=== PATIENT | male | born 1945 | race Caucasian/White ===

== ENCOUNTER 2022-11-07 09:21 | Inpatient (IN) | payer OTHER ==
[~2022-11-07] VITALS: Ht 185.4 cm; Wt 78.9 kg
[2022-11-07 09:35] VITALS: BP_SYST 105
--- NOTE | 2022-11-07 09:42 | NUR ---
RECEIVED PT FROM RAY DELGADO. PT CLAYTON ACLS FOR C/O DIZZINESS AND SYNCOPE. PT IS AAOX4. ON R/A. PT SKIN WARM, DRY, INTACT, PALE. PT DENIES N/V/D/C. DISTAL PULSES NORMAL. DENIES PAIN. SIDERAILS UP X2.
--- NOTE | 2022-11-07 09:45 | NUR ---
BLOOD DRAWN AND TAKEN TO LAB.
--- NOTE | 2022-11-07 09:47 | NUR ---
ER at bedside examining patient.
[2022-11-07 10:07] LABS: BASOPHILS # (AUTO) 0.1 K/uL (0.0-0.2); BASOPHILS % (AUTO) 0.7 % (0.0-2.0); EOSINOPHILS # (AUTO) 0.1 K/uL (0.0-0.4); EOSINOPHILS % (AUTO) 0.9 % (0.0-4.0); HEMATOCRIT 26.5 % (36-54); HEMOGLOBIN 8.8 g/dL (14.0-18.0); LYMPHOCYTES # (AUTO) 2.4 K/uL (1.0-5.5); LYMPHOCYTES % (AUTO) 16.2 % (20.5-51.5); MEAN CORPUSCULAR HEMOGLOBIN 31 pg (27-31); MEAN CORPUSCULAR HGB CONC 33 % (32-36); MEAN CORPUSCULAR VOLUME 94 fL (79.0-98.0); MONOCYTES # (AUTO) 1.1 K/uL (0.0-1.0); MONOCYTES % (AUTO) 7.6 % (1.7-9.3); NEUTROPHILS % (AUTO) 74.6 % (40.0-70.0); PLATELET COUNT (AUTO) 271 K/uL (130-430); RED BLOOD CELL COUNT(AUTO) 2.83 MIL/uL (4.2-6.2); RED CELL DISTRIBUTION WIDTH 15.5 % (9.0-15.0); WHITE BLOOD COUNT (AUTO) 14.7 K/uL (4.8-10.8)
--- NOTE | 2022-11-07 10:08 | NUR ---
ekg, cxr and labs obtained. at bedside.
--- NOTE | 2022-11-07 10:13 | NUR ---
b/p 85/34, [place] made aware. ns 1000ml bolus will be given.
[2022-11-07] MEDS ORDERED: NACL 0.9% 1,000 ML IV ONE (10:15)
[2022-11-07 10:20] LABS: ANION GAP 21 (5-15); CALCIUM 9.7 mg/dL (8.4-11.0); CHLORIDE 101 mmol/L (98-107); GLUCOSE 272 mg/dL (70-99); UREA NITROGEN, BLOOD 85 mg/dL (8-21)
[2022-11-07 10:22] LABS: INR 1.2 (0.80-1.20); PROTHROMBIN TIME 12.5 SECS (9.5-12.5)
[2022-11-07 10:32] LABS: ALANINE AMINOTRANSFERASE 11 U/L (12-78); ALBUMIN 3.5 g/dL (3.4-4.8); ASPARTATE AMINOTRANSFERASE 8 U/L (10-37); TOTAL BILIRUBIN 0.3 mg/dL (0.0-1.0)
[2022-11-07] MEDS ORDERED: PANTOPRAZOLE SODIUM 40 MG/VIAL (PROTONIX) IVP ONE (12:00)
[2022-11-07] MEDS ORDERED: D5/0.45 NS 1,000 ML IV SCH ×2 (12:15→19:45)
[2022-11-07] MEDS ORDERED: METF1000 PO (12:26)
[2022-11-07] MEDS ORDERED: HYDR25TA4 PO (12:26)
[2022-11-07] MEDS ORDERED: APIX5TAB PO (12:26)
[2022-11-07] MEDS ORDERED: INSU100V9 (12:26)
[2022-11-07] MEDS ORDERED: METO50TA16 PO (12:26)
[2022-11-07] MEDS ORDERED: ATOR-1 PO (12:26)
--- NOTE | 2022-11-07 12:39 | NUR ---
Admit bed requested Patient will be admitted to care of . Admitted to TELEMETRY unit. Diagnosis LOWER GI BLEED. Inpatient (Yes or No) YES Observation (Yes or No) YES Orientation concerns or request close to nursing station (Yes or No) NO Covid Status NEGATIVE On vent or bipap NO Isolation requirements NONE Needs a sitter NO From Home (Yes or if No enter name of facility) YES Requires Dialysis (Yes or No) NO Med Rec Completed (Yes of No) YES
[2022-11-07] MEDS ORDERED: SIMETHICONE 40 MG/0.6 ML ML ONE (13:35)
[2022-11-07] MEDS ORDERED: fentaNYL CITRATE/PF 100 MCG/2 ML AMP ONE (13:35)
[2022-11-07] MEDS ORDERED: MIDAZOLAM HCL 5 MG/5 ML VIAL ONE (13:37)
--- NOTE | 2022-11-07 14:01 | NUR ---
PT TRANSFERRED TO GI LAB FOR EGD. REPORT GIVEN TO RAY PINEDA.
--- NOTE | 2022-11-07 14:02 | NUR ---
Patient will be admitted to care of RAY PINEDA WITH GI LAB. Admitted to TELEMETRY unit. Will go to room UNKNOWN AT THIS TIME. Belongings list completed. Complete and up to date summary report printed. SBAR report to be given at bedside with opportunity for questions.
[2022-11-07 14:21] LABS: BASOPHILS # (AUTO) 0.1 K/uL (0.0-0.2); BASOPHILS % (AUTO) 0.5 % (0.0-2.0); EOSINOPHILS % (AUTO) 0.1 % (0.0-4.0); LYMPHOCYTES # (AUTO) 1.5 K/uL (1.0-5.5); LYMPHOCYTES % (AUTO) 13.7 % (20.5-51.5); MEAN CORPUSCULAR HEMOGLOBIN 32 pg (27-31); MEAN CORPUSCULAR HGB CONC 34 % (32-36); MEAN CORPUSCULAR VOLUME 93 fL (79.0-98.0); MONOCYTES # (AUTO) 0.6 K/uL (0.0-1.0); MONOCYTES % (AUTO) 5.5 % (1.7-9.3); NEUTROPHILS # (AUTO) 8.7 K/uL (1.8-7.7); NEUTROPHILS % (AUTO) 80.2 % (40.0-70.0); PLATELET COUNT (AUTO) 202 K/uL (130-430); RED BLOOD CELL COUNT(AUTO) 2.32 MIL/uL (4.2-6.2); RED CELL DISTRIBUTION WIDTH 15.6 % (9.0-15.0); WHITE BLOOD COUNT (AUTO) 10.9 K/uL (4.8-10.8)
[2022-11-07 14:25] VITALS: BP_SYST 98
[2022-11-07 14:25] LABS: HEMATOCRIT 21.6 % (36-54); HEMOGLOBIN 7.4 g/dL (14.0-18.0)
--- NOTE | 2022-11-07 14:25 | NUR ---
ADMIT TO UNIT PATIENT ARRIVED TO UNIT VIA GURNEY FROM GI LAB. PATIENT UNDERWENT EGD. PATIENT IS AOX4. ERITREAN SPEAKING. NO SS OF ACUTE RESPIRATORY DISTRESS. BREATHING IS EVEN AND NONLABORED, NC AT 3 L O2. VITAL SIGNS OBTAINED, DOCUMENTED. PATIENT DENIES PAIN. REPORT RECEIVED AT BEDSIDE BY RAY PINEDA. PUT IN ORDER FOR BLOOD TRANSFUSION IF HGB LESS THAN 7.5 TRANSFUSE 1 UNIT OF PRBC. IF HGB LESS THAN 7.0 TRANSFUSE 2 UNITS OF PRBC. AT BEDSIDE. PATIENT HAS BEEN ORIENTED TO ROOM AND CALL LIGHT USE. PATIENT EDUCATED ON FALL AND SAFETY PREVENTIONS/ PRECAUTIONS. BED IS LOCKED, AT LOWEST POSITION, AND CALL LIGHT WITHIN REACH.
[2022-11-07 15:01] VITALS: BP_SYST 98
--- NOTE | 2022-11-07 15:13 | NUR ---
CONSULTATION PAGED/CALLED Reason for Consultation: [] CHF? Person Who was Notified: [] FATOU FRITZ Consulting Physician: [] FATOU FRITZ/DR Marcia ORTEGA CUSTOMER CARE MANAGER FOR DR TALBOT Plasterer Spray Gun Specialty: [] CARDIO Ordering Physician: [] DR HERNANDEZ
--- NOTE | 2022-11-07 15:15 | NUR ---
GI CONSULT DR CANELA IS AWARE O F THE CONSULT RE: LOWER GI BLEED.
[2022-11-07 16:00] VITALS: BP_SYST 92
--- NOTE | 2022-11-07 16:00 | NUR ---
Notes patient is resting, no ss of distress noted. Blood transfusion consent signed and paperwork sent to blood bank.
[2022-11-07 18:14] LABS: BASOPHILS # (AUTO) 0.1 K/uL (0.0-0.2); BASOPHILS % (AUTO) 0.8 % (0.0-2.0); EOSINOPHILS % (AUTO) 0.2 % (0.0-4.0); HEMOGLOBIN 7.5 g/dL (14.0-18.0); LYMPHOCYTES # (AUTO) 2.4 K/uL (1.0-5.5); LYMPHOCYTES % (AUTO) 23.6 % (20.5-51.5); MEAN CORPUSCULAR HEMOGLOBIN 32 pg (27-31); MEAN CORPUSCULAR HGB CONC 35 % (32-36); MEAN CORPUSCULAR VOLUME 94 fL (79.0-98.0); MONOCYTES % (AUTO) 9.7 % (1.7-9.3); NEUTROPHILS # (AUTO) 6.8 K/uL (1.8-7.7); NEUTROPHILS % (AUTO) 65.7 % (40.0-70.0); PLATELET COUNT (AUTO) 212 K/uL (130-430); RED BLOOD CELL COUNT(AUTO) 2.31 MIL/uL (4.2-6.2); RED CELL DISTRIBUTION WIDTH 15.2 % (9.0-15.0); WHITE BLOOD COUNT (AUTO) 10.4 K/uL (4.8-10.8)
[2022-11-07 18:19] LABS: HEMATOCRIT 21.7 % (36-54)
--- NOTE | 2022-11-07 18:29 | NUR ---
notes Blood transfusion started. Blood check with RAY Gaytan. Vital signs obtained. No immediate reaction noted. Tolerating well. Patient is eating dinner. No ss of distress noted. Afebrile. at bedside. Safety precautions in place and call light within reach.
[2022-11-07] MEDS: ATORVASTATIN 20 MG TABLET PO SCH (19:29)
[2022-11-07] MEDS ORDERED: MORPHINE 2 MG/ML INJ. SYRINGE IVP PRN (19:45)
[2022-11-07] MEDS ORDERED: NALOXONE HCL 0.4 MG/ML AMP (NARCAN) IVP PRN (19:45)
[2022-11-07] MEDS ORDERED: ONDANSETRON HCL 4 MG/2 ML VIAL IVP PRN (19:45)
--- NOTE | 2022-11-07 19:50 | NUR ---
Closing Notes Patient is resting. Breathing is even and nonlabored, on 3 L O2 via NC. No ss of distress noted. patient denies pain. At this time, blood transfusion ongoing, tolerating well. patient denies feeling unwell. A febrile. Called and spoke to Dr. Hernandez, new orders received. at bedside. Patient is stable, all needs met. Bed is locked, alarm on, and at lowest position. Call light within reach. endorsed continue of care to RAY Brandon. Report given at bedside.
[2022-11-07 20:25] VITALS: BP_SYST 126
[2022-11-07] MEDS ORDERED: cefTRIAXone 1 GM IVPB PREMIX 50 ML IV ONE (22:19)
[2022-11-07] MEDS ORDERED: metroNIDAZOLE 500 mg/NS 100 ML IV ONE (22:23)
[2022-11-07] MEDS: metroNIDAZOLE 500 mg/NS 100 ML IV SCH (22:26)
[2022-11-07] MEDS: cefTRIAXone 1 GM in D5W 50 ML IV SCH (22:27)
[2022-11-07 22:45] VITALS: BP_SYST 96
[2022-11-08 05:00] VITALS: BP_SYST 127
--- NOTE | 2022-11-08 06:22 | NUR ---
CONSULTATION PAGED REASON FOR CONSULTATION:ELEVATED WBD WAS CONSULT CALLED?Y PERSON WHO WAS NOTIFIED:JANEL CONSULTING PHYSICIAN:PHONG DE LA ROSA SUPERVISOR AIRCRAFT CLEANING SPECIALTY:ID SUPERVISOR AIRCRAFT CLEANING PHONE NUMBER:[phone] REQUESTING PHYSICIAN:JESSICA AGUSTIN
[2022-11-08] MEDS: metroNIDAZOLE 500 mg/NS 100 ML IV SCH ×3 (06:51→21:30)
[2022-11-08 08:00] VITALS: BP_SYST 112
[2022-11-08 08:34] LABS: BASOPHILS % (AUTO) 0.5 % (0.0-2.0); EOSINOPHILS # (AUTO) 0.2 K/uL (0.0-0.4); EOSINOPHILS % (AUTO) 2.4 % (0.0-4.0); HEMATOCRIT 25.2 % (36-54); HEMOGLOBIN 8.6 g/dL (14.0-18.0); LYMPHOCYTES # (AUTO) 1.2 K/uL (1.0-5.5); LYMPHOCYTES % (AUTO) 15.2 % (20.5-51.5); MEAN CORPUSCULAR HEMOGLOBIN 32 pg (27-31); MEAN CORPUSCULAR HGB CONC 34 % (32-36); MEAN CORPUSCULAR VOLUME 93 fL (79.0-98.0); MONOCYTES # (AUTO) 0.9 K/uL (0.0-1.0); MONOCYTES % (AUTO) 10.9 % (1.7-9.3); NEUTROPHILS # (AUTO) 5.6 K/uL (1.8-7.7); PLATELET COUNT (AUTO) 204 K/uL (130-430); RED CELL DISTRIBUTION WIDTH 15.8 % (9.0-15.0); WHITE BLOOD COUNT (AUTO) 7.9 K/uL (4.8-10.8)
[2022-11-08] MEDS: ATORVASTATIN 20 MG TABLET PO SCH (08:51)
[2022-11-08] MEDS: DOXYCYCLINE HYCLATE 100 MG CAPSULE PO SCH ×2 (08:52→21:55)
[2022-11-08 09:11] LABS: ALANINE AMINOTRANSFERASE 8 U/L (12-78); ALBUMIN 3.1 g/dL (3.4-4.8); ANION GAP 13 (5-15); ASPARTATE AMINOTRANSFERASE 8 U/L (10-37); CALCIUM 8.7 mg/dL (8.4-11.0); CHLORIDE 103 mmol/L (98-107); CREATININE 1.28 mg/dL (0.55-1.30); GLUCOSE 287 mg/dL (70-99); TOTAL BILIRUBIN 0.6 mg/dL (0.0-1.0); UREA NITROGEN, BLOOD 53 mg/dL (8-21)
[2022-11-08 11:30] VITALS: BP_SYST 124
[2022-11-08] MEDS: INSULIN REGULAR, HUMAN 10 UNITS/0.1 ML, 3 ML VIAL SUBCUT PRN ×3 (12:56→21:39)
[2022-11-08 15:50] VITALS: BP_SYST 112
[2022-11-08] MEDS: NACL 0.9% 1,000 ML IV SCH (16:57)
[2022-11-08 18:54] LABS: BILIRUBIN,URINE NEGATIVE (NEGATIVE); BLOOD, URINE NEGATIVE (NEGATIVE); CLARITY/URINE CLEAR (CLEAR); COLOR,URINE YELLOW (YELLOW); GLUCOSE,URINE 3+ (NEGATIVE); KETONES,URINE TRACE (NEGATIVE); LEUKOCYTE ESTERASE ,URINE NEGATIVE (NEGATIVE); NITRITE, URINE NEGATIVE (NEGATIVE); PH,URINE 5.5 (5.0-8.0); PROTEIN URINE NEGATIVE (NEGATIVE); UROBILINOGEN,URINE 0.2 (0.2-1.0)
[2022-11-08 20:30] VITALS: BP_SYST 123
[2022-11-08] MEDS ORDERED: METOPROLOL TARTRATE 50 MG TABLET PO SCH (21:00)
[2022-11-08] MEDS: PANTOPRAZOLE SODIUM 40 MG/VIAL (PROTONIX) IVP SCH (21:29)
[2022-11-08] MEDS: cefTRIAXone 1 GM in D5W 50 ML IV SCH (21:29)
[2022-11-08] MEDS: METOPROLOL TARTRATE 25 MG TABLET PO SCH (21:55)
[2022-11-09 00:27] VITALS: BP_SYST 106
[2022-11-09] MEDS: levalbuterol HCL 0.63 MG/3 ML VIAL.NEB INH PRN ×2 (03:33→22:36)
[2022-11-09] MEDS: NACL 0.9% 1,000 ML IV SCH (05:45)
[2022-11-09] MEDS: metroNIDAZOLE 500 mg/NS 100 ML IV SCH ×3 (06:11→21:23)
[2022-11-09] MEDS: INSULIN REGULAR, HUMAN 10 UNITS/0.1 ML, 3 ML VIAL SUBCUT PRN (06:17)
[2022-11-09 08:11] LABS: BASOPHILS % (AUTO) 0.4 % (0.0-2.0); EOSINOPHILS # (AUTO) 0.2 K/uL (0.0-0.4); EOSINOPHILS % (AUTO) 2.9 % (0.0-4.0); HEMATOCRIT 26.8 % (36-54); HEMOGLOBIN 9.1 g/dL (14.0-18.0); LYMPHOCYTES # (AUTO) 1.3 K/uL (1.0-5.5); LYMPHOCYTES % (AUTO) 15.2 % (20.5-51.5); MEAN CORPUSCULAR HEMOGLOBIN 32 pg (27-31); MEAN CORPUSCULAR HGB CONC 34 % (32-36); MEAN CORPUSCULAR VOLUME 94 fL (79.0-98.0); MONOCYTES # (AUTO) 0.9 K/uL (0.0-1.0); MONOCYTES % (AUTO) 10.6 % (1.7-9.3); NEUTROPHILS # (AUTO) 5.9 K/uL (1.8-7.7); NEUTROPHILS % (AUTO) 70.9 % (40.0-70.0); PLATELET COUNT (AUTO) 207 K/uL (130-430); RED BLOOD CELL COUNT(AUTO) 2.87 MIL/uL (4.2-6.2); RED CELL DISTRIBUTION WIDTH 16.4 % (9.0-15.0); WHITE BLOOD COUNT (AUTO) 8.4 K/uL (4.8-10.8)
[2022-11-09] MEDS ORDERED: ATORVASTATIN 20 MG TABLET PO SCH (09:00)
[2022-11-09] MEDS: DOXYCYCLINE HYCLATE 100 MG CAPSULE PO SCH ×2 (09:56→21:23)
[2022-11-09] MEDS: METOPROLOL TARTRATE 25 MG TABLET PO SCH ×2 (09:56→21:25)
[2022-11-09] MEDS: ATORVASTATIN 20 MG TABLET PO SCH (09:57)
[2022-11-09] MEDS: PANTOPRAZOLE SODIUM 40 MG/VIAL (PROTONIX) IVP SCH ×2 (09:57→21:24)
[2022-11-09 11:16] LABS: ALANINE AMINOTRANSFERASE 9 U/L (12-78); ANION GAP 11 (5-15); ASPARTATE AMINOTRANSFERASE 11 U/L (10-37); CALCIUM 8.6 mg/dL (8.4-11.0); CHLORIDE 108 mmol/L (98-107); CREATININE 1.24 mg/dL (0.55-1.30); GLUCOSE 306 mg/dL (70-99); TOTAL BILIRUBIN 0.3 mg/dL (0.0-1.0); UREA NITROGEN, BLOOD 30 mg/dL (8-21)
[2022-11-09 11:49] VITALS: BP_SYST 124
[2022-11-09] MEDS ORDERED: D5W 1,000 ML IV PRN (13:15)
[2022-11-09] MEDS ORDERED: GLUCOSE (DEXTROSE) ORAL GEL -Adults PO PRN (13:15)
[2022-11-09] MEDS ORDERED: DEXTROSE 50% JECT 50 ML DISP.SYRIN IVP PRN (13:15)
[2022-11-09] MEDS: INSULIN REGULAR, HUMAN 100 UNITS/ML, 3 ML VIAL (humuLIN R) SUBCUT PRN ×3 (13:42→21:37)
[2022-11-09 16:51] VITALS: BP_SYST 126
--- NOTE | 2022-11-09 18:45 | NUR ---
Mr Houser has been assessed as indicated.He continues ro deny pain. He uses the urinal successfully. Blood sugars remain elevated. Mr Houser informed this chart writer that he uses Lantus as home very AM. His has been at the bedside most of this shift. They have both been noted to be pleasant and cooperative. IVF have been well tolerated. He has not made any attempts to get OOB this shift. At this time Mr Houser is resting quietly with no s/ of distress or discomfort
--- NOTE | 2022-11-09 19:15 | NUR ---
Handoff has been given Roma
[2022-11-09 19:25] VITALS: BP_SYST 131
--- NOTE | 2022-11-09 20:30 | NUR ---
PATIENT TO REQUEST THIS RN TO BEDSIDE- NOTE IS PRESENT WELL, SHE VOICED HE CALLED ME TO COME UP BECAUSE HE WANTED THE SHOEMAKING CUTTER CALLED TO COME HELP THE OTHER PERSON. THIS RN TO DISCUSS WITH AND PATIENT THE PREVIOUS CONVERSATION, HE AND I HAD WHERE THE HAD CALLED TO NOTIFY STAFF THAT ASTRID DAWN HAD CALLED THEM TO COME HELP HERE AT THE HOSPITAL. PATIENT REASSURED AND REDIRECTED OF HIS SAFETY AND OTHER- RETURNED HOME AT THIS TIME.
--- NOTE | 2022-11-09 21:15 | NUR ---
THIS RN CALLED TO NURSES STATION AND WAS TOLD THE PATIENT IN 107B CALLED THE ADMINISTRATIVE VOLUNTEER TO COME HELP THE PERSON HERE YELLING WHO NEEDED HELP- NOTE THIS RN HAD JUST LEFT THE PT'S BEDSIDE WHERE WE DISCUSSED HOW THE HOSPITAL SEEMED BUSY AND LOUD TODAY OUT IN THE HALLS ON THE PREVIOUS SHIFT. THIS RN TO EXPRESS TO PATIENT THAT WE DO HAVE CONFUSED PTS ON THE FLOOR WHO ARE CLOSE TO THE NURSES STATION THAT ARE MONITORED FOR THEIR SAFETY EVEN THO THEY MAYBE YELLING FOR HELP( CURRENTLY A PT IS YELLING " SOMEBODY COME HELP ME, AND GET ME OUT OF HERE".) PATIENT REASSURED OF HIS SAFETY AND OTHER PATIENTS SAFETY ON THE FLOOR.
[2022-11-09] MEDS: cefTRIAXone 1 GM in D5W 50 ML IV SCH (21:22)
--- NOTE | 2022-11-09 21:40 | NUR ---
-THIS RN ADMINISTERING MEDICATIONS TO PATIENT IN ROOM 105A AT THIS TIME WHEN THE PAINT TECHNICIAN VOICED TO ME THAT THE PATIENT'S HR WAS UP AND SUSTAINING AND THAT HIS WAS AT THE NURSING STATION REQUESTING I COME HELP HIM THAT HE REALLY NEEDED ME- NOTED STANDING OUTSIDE THE ROOM DOOR OF 105 AND VOICED SHE WOULD WAIT FOR ME TO COME OUT. I ASKED THE PAINT TECHNICIAN TO ASK THE CHARGE NURSE TO PLEASE CHECK ON THE PT I WAS ADMINISTERING MEDICATIONS TO THE PT IN 105A. -CHARGE NURSE AWARE AND HEADED TO ROOM 107B. - IN THE PROCESS OF GIVING MEDICATION TO THE PT IN ROOM 105A- THE WALKED INTO THE ROOM OF 105 REQUESTING I COME NOW THAT HER REALLY NEEDED ME. THIS RN TO VOICE TO THE , I WAS AT THE BEDSIDE OF A PT AND SHE COULDN'T BE IN THIS ROOM WITH ME OF 105- THAT I WOULD BE OUT SHORTLY AND THE CHARGE NURSE IS AT BEDSIDE TO HELP. THE VOICED "HE REALLY NEEDS YOU, HIS NURSE". - THIS RN ARRIVED AT BEDSIDE WHERE PT WAS ANXIOUS, SOB AND CONFUSED WHICH ISN'T HIS BASELINE. HE WAS SITTING ON THE SIDE OF THE BED WITH HIS FEET DANGLING VOICING A CRIME WAS COMMITTED AND HE NEEDED TO SPEAK WITH THE BACKROOM ASSOCIATE TO REPORT IT. 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 PT VOICED IF ONLY I COULD HAVE GOTTEN DOWN THERE TO TASTE IT TO KNOW WHAT IT WAS, I COULD PROVE A CRIME WAS BEING COMMITTED. PATIENT ENCOURAGED THE TO CALL THE BACKROOM ASSOCIATE AND SHE VOICED " I ALREADY DID AND THEY AREN'T GOING TO COME WITHOUT PROOF AND YOU ARE IN THE HOSPITAL, THE PATIENT RESPONDED AND ASKED HIS -"HONEY WHO'S SIDE ARE YOU ON HERE?. - PT CONFUSED AND SOB- BREATHING TX SUGGESTED AND PT REFUSED - HE ALSO REFUSED TO WEAR HIS OXYGEN UNTIL HE SPOKE WITH SOME. THIS RN RECOMMENDED THAT HE SPEAK WITH OUR SECURITY HERE SO THAT HE WOULD HAVE A UNDERSTANDING HIS SAFETY WAS BEING MAINTAINED. PATIENT AGREED AND ALSO AGREED TO CHANGE ROOMS SO THAT HE COULD AVOID THE CRIME BEING COMMITTED ON THE OTHER SIDE OF THE CURTAIN. - SECURITY AT BEDSIDE TO SPEAK WITH PATIENT AND REASSURE WITH REDIRECTION INCLUDED, REMAINS AT BEDSIDE. CHARGE NURSE ASSIGNING PATIENT TO ROOM 124B. PATIENT SEEMS PLEASED WITH OUTCOME AFTER SPEAKING WITH THE SECURITY.
[2022-11-10] MEDS: NACL 0.9% 1,000 ML IV SCH ×2 (01:45→21:21)
[2022-11-10 02:00] VITALS: BP_SYST 128
--- NOTE | 2022-11-10 02:45 | NUR ---
THIS RN CALLED TO ROOM BY STAFF BECAUSE PT WAS CONFUSED AND WAS TRYING TO GET OUT OF BED TO GO HELP THE PERSON HOLLERING "SOMEBODY COME HELP ME". THIS RN TO REASSURE HIM- PT WAS BEING HELPED AND WAS ON THE OTHER SIDE OF THE HOSPITAL NEAR THE ROOM HE JUST LEFT BY THE CONFUSED PT YELLING WHEN HE WANTED TO CALL THE IRON MINER BLASTING FOR HELP, PRIOR TO BEING MOVED TO ROOM 124B. PATIENT REORIENTED OF SURROUNDINGS AND SITUATION. HE VOICED THAT AT [facility] AFTER 8PM THE LIGHTS GO DOWN IN THE HOSPITAL AND ITS QUIET. PATIENT REDIRECTED AND REASSURED- HE VOICED "OKAY- I TRUST YOU AND I WILL TRY TO GET SOME SLEEP. - NOTE PATIENT CONFUSED MAJORITY OF THE SHIFT. BASELINE NOTED AOX4- WILL MONITOR AND MAINTAIN SAFETY.
[2022-11-10] MEDS: metroNIDAZOLE 500 mg/NS 100 ML IV SCH ×3 (06:46→22:27)
[2022-11-10] MEDS: INSULIN REGULAR, HUMAN 100 UNITS/ML, 3 ML VIAL (humuLIN R) SUBCUT PRN ×4 (06:51→21:20)
[2022-11-10] MEDS: ATORVASTATIN 20 MG TABLET PO SCH (09:48)
[2022-11-10] MEDS: PANTOPRAZOLE SODIUM 40 MG/VIAL (PROTONIX) IVP SCH ×2 (09:49→21:09)
[2022-11-10] MEDS: METOPROLOL TARTRATE 25 MG TABLET PO SCH ×2 (09:49→21:10)
[2022-11-10] MEDS: DOXYCYCLINE HYCLATE 100 MG CAPSULE PO SCH ×2 (09:49→21:10)
[2022-11-10] MEDS: INSULIN GLARGINE 100 UNITS/ML, 10 ML VIAL SUBCUT SCH (09:56)
[2022-11-10 15:50] LABS: WHITE BLOOD COUNT (AUTO) 8.1 K/uL (4.8-10.8)
[2022-11-10 15:53] LABS: BASOPHILS % (AUTO) 0.5 % (0.0-2.0); EOSINOPHILS # (AUTO) 0.2 K/uL (0.0-0.4); HEMATOCRIT 24.1 % (36-54); HEMOGLOBIN 8.3 g/dL (14.0-18.0); LYMPHOCYTES # (AUTO) 1.4 K/uL (1.0-5.5); LYMPHOCYTES % (AUTO) 17.8 % (20.5-51.5); MEAN CORPUSCULAR HEMOGLOBIN 32 pg (27-31); MEAN CORPUSCULAR HGB CONC 34 % (32-36); MEAN CORPUSCULAR VOLUME 93 fL (79.0-98.0); MONOCYTES % (AUTO) 12.8 % (1.7-9.3); NEUTROPHILS # (AUTO) 5.5 K/uL (1.8-7.7); NEUTROPHILS % (AUTO) 66.9 % (40.0-70.0); PLATELET COUNT (AUTO) 213 K/uL (130-430); RED BLOOD CELL COUNT(AUTO) 2.58 MIL/uL (4.2-6.2)
[2022-11-10 16:22] LABS: ANION GAP 12 (5-15); CALCIUM 8.4 mg/dL (8.4-11.0); CHLORIDE 106 mmol/L (98-107); CREATININE 1.22 mg/dL (0.55-1.30); GLUCOSE 325 mg/dL (70-99); UREA NITROGEN, BLOOD 20 mg/dL (8-21)
--- NOTE | 2022-11-10 18:45 | NUR ---
Mr Houser has been assessed as indicated. He continues to deny pain. He had a BM this shift. Stool was saved for the possibility of testing but was discarded by staff air tactical officer. He did work with PT. SNF placement has been discussed with by his and this ticket writer. He is presently cooperative with that plan. He remains on Oxygen and is resting quietly
--- NOTE | 2022-11-10 19:15 | NUR ---
Handoff has given to Lilian
--- NOTE | 2022-11-10 19:48 | NUR ---
PHYSICAL THERAPY CO-SIGN The Physical Therapy Progress Notes documented by Lockstitch Cup Setter have been reviewed. Reviewed/Co-Signed by: Sundeep Washington Documentation Done by:HUGO MENON Addendum: 11/10/22 at 1948 by Sundeep Washington PT Amended: Links added.
[2022-11-10 20:00] VITALS: BP_SYST 115
[2022-11-10] MEDS: cefTRIAXone 1 GM in D5W 50 ML IV SCH (21:09)
[2022-11-11] VITALS: BP_SYST 120
[2022-11-11] MEDS: metroNIDAZOLE 500 mg/NS 100 ML IV SCH ×3 (06:09→22:23)
[2022-11-11] MEDS: DOXYCYCLINE HYCLATE 100 MG CAPSULE PO SCH ×2 (08:50→21:39)
[2022-11-11] MEDS: PANTOPRAZOLE SODIUM 40 MG/VIAL (PROTONIX) IVP SCH ×2 (08:51→21:38)
[2022-11-11] MEDS: ATORVASTATIN 20 MG TABLET PO SCH (08:51)
[2022-11-11] MEDS: METOPROLOL TARTRATE 25 MG TABLET PO SCH ×2 (08:51→21:39)
[2022-11-11] MEDS: INSULIN GLARGINE 100 UNITS/ML, 10 ML VIAL SUBCUT SCH (08:59)
[2022-11-11] MEDS: INSULIN REGULAR, HUMAN 100 UNITS/ML, 3 ML VIAL (humuLIN R) SUBCUT PRN ×3 (11:40→21:40)
[2022-11-11 11:48] VITALS: BP_SYST 103
[2022-11-11 11:58] LABS: BASOPHILS % (AUTO) 0.5 % (0.0-2.0); EOSINOPHILS # (AUTO) 0.2 K/uL (0.0-0.4); EOSINOPHILS % (AUTO) 2.3 % (0.0-4.0); HEMATOCRIT 26.5 % (36-54); HEMOGLOBIN 8.7 g/dL (14.0-18.0); LYMPHOCYTES # (AUTO) 1.2 K/uL (1.0-5.5); LYMPHOCYTES % (AUTO) 15.6 % (20.5-51.5); MEAN CORPUSCULAR HEMOGLOBIN 32 pg (27-31); MEAN CORPUSCULAR HGB CONC 33 % (32-36); MEAN CORPUSCULAR VOLUME 97 fL (79.0-98.0); MONOCYTES # (AUTO) 0.7 K/uL (0.0-1.0); MONOCYTES % (AUTO) 8.9 % (1.7-9.3); NEUTROPHILS # (AUTO) 5.8 K/uL (1.8-7.7); NEUTROPHILS % (AUTO) 72.7 % (40.0-70.0); PLATELET COUNT (AUTO) 196 K/uL (130-430); RED BLOOD CELL COUNT(AUTO) 2.74 MIL/uL (4.2-6.2); RED CELL DISTRIBUTION WIDTH 16.6 % (9.0-15.0)
[2022-11-11 12:18] LABS: ANION GAP 9 (5-15); CALCIUM 8.4 mg/dL (8.4-11.0); CHLORIDE 108 mmol/L (98-107); CREATININE 1.35 mg/dL (0.55-1.30); GLUCOSE 250 mg/dL (70-99); UREA NITROGEN, BLOOD 21 mg/dL (8-21)
--- NOTE | 2022-11-11 15:25 | NUR ---
PHYSICAL THERAPY CO-SIGN The Physical Therapy Progress Notes documented by Post Office Manager have been reviewed. Reviewed/Co-Signed by: Sundeep Washington Documentation Done by:HUGO MENON Addendum: 11/11/22 at 1525 by Sundeep Washington PT Amended: Links added.
[2022-11-11 17:00] VITALS: BP_SYST 103
[2022-11-11] MEDS: NACL 0.9% 1,000 ML IV SCH ×2 (17:45→19:19)
[2022-11-11 18:10] VITALS: BP_SYST 103
[2022-11-11 20:00] VITALS: BP_SYST 125
[2022-11-11] MEDS: cefTRIAXone 1 GM in D5W 50 ML IV SCH (21:26)
[2022-11-12 01:45] VITALS: BP_SYST 126
[2022-11-12] MEDS: metroNIDAZOLE 500 mg/NS 100 ML IV SCH ×3 (06:22→21:28)
[2022-11-12] MEDS: INSULIN REGULAR, HUMAN 100 UNITS/ML, 3 ML VIAL (humuLIN R) SUBCUT PRN ×4 (06:34→20:46)
--- NOTE | 2022-11-12 07:30 | NUR ---
MORNING ROUNDS: RECEIVED REPORT FROM NIGHT NURSE CHIDI. PATIENT ON THE BED,AWAKE,ALERT AND ORIENTED X3. IV FLUIDS RUNNING AT RIGHT FOREARM INTACT. O2 4L/NC,O2 SATURATION=94%.NO SOB. DENIES ANY PAIN. CALL LIGHT WITH IN REACH.BED LOCKED AT LOWEST POSITION. NOT IN ANY RESPIRATORY DISTRESS.
[2022-11-12 08:32] VITALS: BP_SYST 112
[2022-11-12] MEDS: PANTOPRAZOLE SODIUM 40 MG/VIAL (PROTONIX) IVP SCH ×2 (08:36→20:43)
[2022-11-12] MEDS: ATORVASTATIN 20 MG TABLET PO SCH (08:36)
[2022-11-12] MEDS: DOXYCYCLINE HYCLATE 100 MG CAPSULE PO SCH ×2 (08:37→20:43)
[2022-11-12] MEDS: METOPROLOL TARTRATE 25 MG TABLET PO SCH ×2 (08:37→20:23)
[2022-11-12] MEDS: INSULIN GLARGINE 100 UNITS/ML, 10 ML VIAL SUBCUT SCH (08:40)
[2022-11-12 11:11] VITALS: BP_SYST 109
--- NOTE | 2022-11-12 11:30 | NUR ---
BLOOD SUGAR: BLOOD SUGAR TAKEN,WITH INSULIN COVERAGE GIVEN PER SLIDING SCALE. WITH NO PROBLEM.
[2022-11-12] MEDS: levalbuterol HCL 0.63 MG/3 ML VIAL.NEB INH PRN (14:28)
--- NOTE | 2022-11-12 15:00 | NUR ---
RN NOTES: PATIENT ALMOST FAINTED WHEN PHYSICAL THERAPIST WALK PATIENT WITH FWW,WITH OXYGEN ON. PHYSICAL THERAPIST ASSISTED PATIENT BACK TO BED. LOW O2 SATURATION.RT WAS CALLED,DID HHN.AFTER BREATHING TREATMENT ,O2 SATURATION IMPROVED. WAS INFORMED KUVADIA AND ORDERED EKG AND ORTHOSTATIC VITAL SIGNS.
[2022-11-12 15:49] LABS: BASOPHILS % (AUTO) 0.6 % (0.0-2.0); EOSINOPHILS # (AUTO) 0.2 K/uL (0.0-0.4); EOSINOPHILS % (AUTO) 2.6 % (0.0-4.0); HEMATOCRIT 23.1 % (36-54); HEMOGLOBIN 7.8 g/dL (14.0-18.0); LYMPHOCYTES # (AUTO) 0.9 K/uL (1.0-5.5); LYMPHOCYTES % (AUTO) 12.5 % (20.5-51.5); MEAN CORPUSCULAR HEMOGLOBIN 32 pg (27-31); MEAN CORPUSCULAR HGB CONC 34 % (32-36); MEAN CORPUSCULAR VOLUME 95 fL (79.0-98.0); MONOCYTES # (AUTO) 0.9 K/uL (0.0-1.0); MONOCYTES % (AUTO) 13.2 % (1.7-9.3); NEUTROPHILS # (AUTO) 5.1 K/uL (1.8-7.7); NEUTROPHILS % (AUTO) 71.1 % (40.0-70.0); PLATELET COUNT (AUTO) 236 K/uL (130-430); RED BLOOD CELL COUNT(AUTO) 2.44 MIL/uL (4.2-6.2); RED CELL DISTRIBUTION WIDTH 16.8 % (9.0-15.0); WHITE BLOOD COUNT (AUTO) 7.1 K/uL (4.8-10.8)
[2022-11-12 15:54] LABS: ANION GAP 9 (5-15); CHLORIDE 107 mmol/L (98-107); GLUCOSE 273 mg/dL (70-99); UREA NITROGEN, BLOOD 22 mg/dL (8-21)
--- NOTE | 2022-11-12 16:00 | NUR ---
MD ROUNDS: DR HERNANDEZ CAME AND WAS AWARE OF THE SYNCOPE EPISODE,TO HOLD 1 MORE DAY AND MONITOR PATIENT FOR DESATURATION.CASE MGT ELIZA AWARE.
[2022-11-12 17:06] VITALS: BP_SYST 115
[2022-11-12 17:30] VITALS: BP_SYST 102; BP_SYST 107; BP_SYST 119
--- NOTE | 2022-11-12 18:26 | NUR ---
EVENING ROUNDS: PATIENT MUCH BETTER. MAINTAINED O2 5L/MIN. O2 SATURATION=96%.IV FLUIDS RUNNING AT RIGHT FOREARM INTACT. CALL LIGHT WITH IN REACH. BED LOCKED AT LOWEST POSITION. AT THE BEDSIDE. NO DISTRESS.
[2022-11-12 19:05] LABS: ALBUMIN 2.8 g/dL (3.4-4.8); BILIRUBIN,DIRECT 0.1 mg/dL (0.0-0.3); TOTAL BILIRUBIN 0.3 mg/dL (0.0-1.0)
[2022-11-12 20:00] VITALS: BP_SYST 98
[2022-11-12] MEDS: NACL 0.9% 1,000 ML IV SCH (20:24)
[2022-11-12] MEDS: cefTRIAXone 1 GM in D5W 50 ML IV SCH (20:42)
[2022-11-13] VITALS (8 sets, daily range): BP systolic 93–120
[2022-11-13] MEDS: metroNIDAZOLE 500 mg/NS 100 ML IV SCH ×3 (06:01→22:04)
[2022-11-13] MEDS: INSULIN REGULAR, HUMAN 100 UNITS/ML, 3 ML VIAL (humuLIN R) SUBCUT PRN ×4 (06:19→22:04)
--- NOTE | 2022-11-13 08:25 | NUR ---
Patient is back from [place] part of the stress test. Patient's a/o x4, verbally responsive in no acute distress. Breathing is unlabored with no c/o shortness of breath, O2 sat on 5L via N/C is 97% lower it to 3L sating 95-96%. Patient's NPO at this time. Patient stated that he'll picked up around 10AM for the second part of the stress test. VSS. Denies any pain or discomfort.
[2022-11-13] MEDS: PANTOPRAZOLE SODIUM 40 MG/VIAL (PROTONIX) IVP SCH ×2 (08:51→21:47)
[2022-11-13] MEDS: ATORVASTATIN 20 MG TABLET PO SCH (08:52)
[2022-11-13] MEDS: METOPROLOL TARTRATE 25 MG TABLET PO SCH ×2 (08:52→21:47)
[2022-11-13] MEDS: DOXYCYCLINE HYCLATE 100 MG CAPSULE PO SCH ×2 (08:53→21:47)
[2022-11-13] MEDS ORDERED: REGADENOSON 0.4 MG/5 ML SYRINGE IVP ONE (10:00)
--- NOTE | 2022-11-13 10:55 | NUR ---
Came by NM for second part of the stress test. Patient's a/o x4, in no acute distress. All due medications are given and blood sugar is checked. Patient has no c/o pain or discomfort. IV access to RFA, patent with no s/s of infection, re-taped and flushed with no resistance.
[2022-11-13] MEDS: INSULIN GLARGINE 100 UNITS/ML, 10 ML VIAL SUBCUT SCH (10:59)
--- NOTE | 2022-11-13 13:10 | NUR ---
PHYSICAL THERAPY CO-SIGN The Physical Therapy Progress Notes documented by Try Out Person have been reviewed. Reviewed/Co-Signed by: Sundeep Washington Documentation Done by:HUGO MENON Addendum: 11/13/22 at 1311 by Sundeep Washington PT Amended: Links added.
--- NOTE | 2022-11-13 16:00 | NUR ---
Orthostatic BP's are done and recorded. Patient's negative for Orthostatic BP. Patient has no c/o dizziness, is still on 3L sat 94-96 %.
[2022-11-13] MEDS: cefTRIAXone 1 GM in D5W 50 ML IV SCH (21:48)
[2022-11-14] VITALS: BP_SYST 127
[2022-11-14] MEDS: metroNIDAZOLE 500 mg/NS 100 ML IV SCH (05:12)
[2022-11-14] MEDS: NACL 0.9% 1,000 ML IV SCH (05:13)
--- NOTE | 2022-11-14 06:49 | NUR ---
PATIENT BS WAS 66, PATIENT GIVEN 240 ML APPLE JUICE REASSESSED BS 89.
[2022-11-14 07:32] LABS: BASOPHILS % (AUTO) 0.6 % (0.0-2.0); EOSINOPHILS # (AUTO) 0.5 K/uL (0.0-0.4); HEMATOCRIT 26.2 % (36-54); HEMOGLOBIN 8.8 g/dL (14.0-18.0); LYMPHOCYTES # (AUTO) 1.1 K/uL (1.0-5.5); LYMPHOCYTES % (AUTO) 15.1 % (20.5-51.5); MEAN CORPUSCULAR HEMOGLOBIN 32 pg (27-31); MEAN CORPUSCULAR HGB CONC 34 % (32-36); MEAN CORPUSCULAR VOLUME 94 fL (79.0-98.0); MONOCYTES # (AUTO) 0.6 K/uL (0.0-1.0); MONOCYTES % (AUTO) 8.6 % (1.7-9.3); NEUTROPHILS # (AUTO) 5.3 K/uL (1.8-7.7); NEUTROPHILS % (AUTO) 69.7 % (40.0-70.0); PLATELET COUNT (AUTO) 287 K/uL (130-430); RED CELL DISTRIBUTION WIDTH 16.3 % (9.0-15.0); WHITE BLOOD COUNT (AUTO) 7.5 K/uL (4.8-10.8)
--- NOTE | 2022-11-14 07:40 | NUR ---
OPENING NOTE Received report from RAY Devi. Upon entering room, patient was awake , alert, and oriented x4. He denies pain or discomfort. Patient complained of IV leaking. IV was was visualized as infiltrated. Catheter was intact, no bleeding noted. Call light was within reach. Safety precautions observed.
--- NOTE | 2022-11-14 07:53 | NUR ---
PHYSICAL THERAPY CO-SIGN The Physical Therapy Progress Notes documented by Experimental Machining Lab Manager have been reviewed. Reviewed/Co-Signed by: Sundeep Washington Documentation Done by:HUGO MENON Addendum: 11/14/22 at 0753 by Sundeep Washington PT Amended: Links added.
[2022-11-14 08:10] VITALS: BP_SYST 121
[2022-11-14 08:35] LABS: ANION GAP 10 (5-15); CALCIUM 8.4 mg/dL (8.4-11.0); CHLORIDE 109 mmol/L (98-107); CREATININE 1.08 mg/dL (0.55-1.30); GLUCOSE 144 mg/dL (70-99); UREA NITROGEN, BLOOD 19 mg/dL (8-21)
--- NOTE | 2022-11-14 08:50 | NUR ---
NEW IV PLACEMENT 22G placed in right AC. Dressing placed and line flushing well.
[2022-11-14] MEDS: INSULIN GLARGINE 100 UNITS/ML, 10 ML VIAL SUBCUT SCH (09:00)
[2022-11-14] MEDS: ATORVASTATIN 20 MG TABLET PO SCH (09:43)
[2022-11-14] MEDS: METOPROLOL TARTRATE 25 MG TABLET PO SCH (09:44)
[2022-11-14] MEDS: PANTOPRAZOLE SODIUM 40 MG/VIAL (PROTONIX) IVP SCH (09:45)
[2022-11-14] MEDS: DOXYCYCLINE HYCLATE 100 MG CAPSULE PO SCH (09:45)
[2022-11-14] MEDS: INSULIN REGULAR, HUMAN 100 UNITS/ML, 3 ML VIAL (humuLIN R) SUBCUT PRN (11:56)
[2022-11-14] MEDS ORDERED: DOXY100C5 PO (14:11)
[2022-11-14] MEDS ORDERED: METO25TA6 PO (14:11)
[2022-11-14 16:18] VITALS: BP_SYST 121
--- NOTE | 2022-11-14 16:36 | NUR ---
Patient to DC to [facility] 7C-Number for report [phone]. Wheelchair transport by [facility] [phone]. waterworks supervisor time 3 PM.
--- NOTE | 2022-11-14 16:50 | NUR ---
D/C Patient Patient discharged to [facility] room 7C. All belongings sent with patient. IV site remains intact. Patient denies pain for discharge. Discharge packet sent with patient. Patient picked up by [facility]. ID band removed.
--- NOTE | 2022-11-17 15:16 | NUR ---
PHYSICAL THERAPY CO-SIGN The Physical Therapy Progress Notes documented by Specimen Technician have been reviewed. Reviewed/Co-Signed by: Sundeep Washington Documentation Done by:HUGO MENON Addendum: 11/17/22 at 1516 by Sundeep Washington PT Amended: Links added.
== END 2022-11-14 16:40 | DRG 871 ==
LOC: SED 09:21 → STU 12:10
PROVIDERS: ADMIT Internal Medicine; ATTEND Internal Medicine
PROC: 30233N1 Transfusion of Nonautologous Red Blood Cells into Peripheral Vein, Percutaneous Approach (ICD-10-PCS; 2022-11-07)
PROC: 0DJ08ZZ Inspection of Upper Intestinal Tract, Via Natural or Artificial Opening Endoscopic (ICD-10-PCS; principal; 2022-11-07 12:45)
DX: A41.9 Sepsis, unspecified organism (principal); J18.9 Pneumonia, unspecified organism; K22.11 Ulcer of esophagus with bleeding; N17.0 Acute kidney failure with tubular necrosis; K25.4 Chronic or unspecified gastric ulcer with hemorrhage; D62 Acute posthemorrhagic anemia; I48.20 Chronic atrial fibrillation, unspecified; E87.20 Acidosis, unspecified; J44.1 Chronic obstructive pulmonary disease with (acute) exacerbation; J44.0 Chronic obstructive pulmonary disease with (acute) lower respiratory infection; Z20.822 Contact with and (suspected) exposure to COVID-19; I25.10 Atherosclerotic heart disease of native coronary artery without angina pectoris; E78.5 Hyperlipidemia, unspecified; K44.9 Diaphragmatic hernia without obstruction or gangrene; I11.0 Hypertensive heart disease with heart failure; I50.9 Heart failure, unspecified; D72.829 Elevated white blood cell count, unspecified; C44.90 Unspecified malignant neoplasm of skin, unspecified; E11.9 Type 2 diabetes mellitus without complications; Z79.01 Long term (current) use of anticoagulants; Z95.1 Presence of aortocoronary bypass graft; Z95.5 Presence of coronary angioplasty implant and graft
CPT/HCPCS: 36415; 43235; 71045; 76770; 80048; 80053; 80076; 81003; 82962; 83735; 83880; 84100; 84484; 85025; 85610-TC; 85730-TC; 86886; 86900; 86901; 86920; 87081; 93005; 93017; 93306; 94640; 94760; 96361; 96374; 96375; 97110-GP; 97112-GP; 97116-GP; 97530-GP; 99291; A9500; C9113; G0378; J0696; J1815; J2250; J2785; J3010; J3490; J7060; J7614; P9021